=== PATIENT | male | born 1930 | race Caucasian/White ===

== ENCOUNTER 2017-02-25 07:09 | Inpatient (IN) ==
[2017-02-25] MEDS ORDERED: LIDOCAINE 1%/EPI INJ 20 ML VIAL ONE (07:51)
[2017-02-25] MEDS ORDERED: DIPH/TET/ACEL PERT BOOSTER VACCINE 0.5 ML VIAL IM ONE (07:54)
[2017-02-25 10:56] LABS: Basophils % 0.2 % (0.0-0.8); Eosinophils # 0.2 10*3/uL (0.0-0.87); Eosinophils % 1.3 % (0.00-10.9); Hematocrit 32.6 VOL% (42.0-52.0); Hemoglobin 10.5 GM/DL (14.0-18.0); Immature Granulocytes % 2.7 %; Immature Granulocytes Absolute 0.47 #; Lymphocytes % 5.5 % (21.2-54.2); Mean Corpuscular HGB Conc 32.2 GM/DL (32-36); Mean Corpuscular Hemoglobin 34 PG (27-34); Mean Corpuscular Volume 106.2 FL (87-102); Mean Platelet Volume 11.2 FL (9.6-12.0); Monocytes # 1.2 10*3/uL (0.11-0.8); Monocytes % 6.6 % (1.7-12.7); NRBC # 0.02 10*3/uL; Neutrophils # 14.8 10*3/uL (1.4-7.4); Neutrophils % 83.7 % (38.7-73.9); Platelet Count 127 T/CUMM (130-400); Red Blood Count 3.07 MC/CUMM (3.8-5.5); Red Cell Distribution Width 17.5 % (9.3-17.3); White Blood Count 17.6 T/CUMM (4-12)
[2017-02-25 11:32] LABS: Albumin 3.2 G/DL (3.4-5.0); Calcium 8.5 MG/DL (8.5-10.1); Osmolality,Calculated 308.6 MOS/KG (273-304); Potassium 3.7 MMOL/L (3.5-5.1); Total Protein 6.3 G/DL (6.4-8.3)
[2017-02-25 11:33] LABS: Troponin I Only 0.05 NG/ML (0.00-0.045)
[2017-02-25] MEDS ORDERED: PIPERACILLIN/TAZOBACTAM 3,375 MG in SODIUM CHLORIDE 0.9% 100 ML IV STA (11:48)
[2017-02-25] MEDS ORDERED: SODIUM CHLORIDE 0.9% 500 ML IV STA (11:52)
[2017-02-25] MEDS ORDERED: PIPERACILLIN/TAZOBACTAM 3,375 MG VIAL IV ONE (12:14)
[2017-02-25] MEDS ORDERED: DIPHTHERIA/TETANUS ADULT VACCINE 0.5 ML VIAL IM ONE (12:14)
[2017-02-25] MEDS ORDERED: SODIUM CHLORIDE 0.9% 100 ML IV ONE (12:15)
[2017-02-25] MEDS ORDERED: ONDANSETRON 4 MG/2 ML VIAL IV PRN (13:35)
[2017-02-25] MEDS ORDERED: ACETAMINOPHEN 325 MG TABLET PO PRN (14:00)
[2017-02-25] MEDS ORDERED: SODIUM CHLORIDE 0.9% 1,000 ML IV SCH (14:00)
[2017-02-25 16:59] LABS: Apearance,Urine Slightly Hazy (Clear); Bilirubin,Urine Negative (Negative); Blood, Urine Large mg/dL (Negative); Glucose,Urine (UA) Negative (Negative); Hyaline Casts,Urine 2 /LPF (0-3); Ketones,Urine Negative (Negative); Mucus,Urine Occasional /LPF (Occasional); Nitrite,Urine Negative (Negative); Protein,Urine Negative; RBC,Urine 368 /HPF (0-4); Urine Color Yellow (Yellow); Urine Urobilinogen < 2.0 EU/DL (0.2-1.0); WBC,Urine 1 /HPF (0-6)
[2017-02-25] MEDS: rOPINIRole 1 MG TABLET PO SCH (20:50)
[2017-02-26 05:57] LABS: Basophils % 0.1 % (0.0-0.8); Eosinophils # 0.1 10*3/uL (0.0-0.87); Eosinophils % 0.9 % (0.00-10.9); Hemoglobin 9.1 GM/DL (14.0-18.0); Immature Granulocytes % 1.7 %; Lymphocytes % 8.5 % (21.2-54.2); Mean Corpuscular HGB Conc 32.5 GM/DL (32-36); Mean Corpuscular Hemoglobin 35 PG (27-34); Mean Corpuscular Volume 107.3 FL (87-102); Mean Platelet Volume 11.7 FL (9.6-12.0); Monocytes % 8.4 % (1.7-12.7); Neutrophils # 9.3 10*3/uL (1.4-7.4); Neutrophils % 80.4 % (38.7-73.9); Red Blood Count 2.61 MC/CUMM (3.8-5.5); Red Cell Distribution Width 17.9 % (9.3-17.3); White Blood Count 11.6 T/CUMM (4-12)
[2017-02-26 06:00] LABS: Platelet Count 102 T/CUMM (130-400)
[2017-02-26 06:35] LABS: Giant Platelets Few; Hypochromasia 1+; Ovalocytes Slight; Platelet Estimate Decreased
[2017-02-26 06:43] LABS: Albumin 2.8 G/DL (3.4-5.0); Bilirubin,Total 0.9 MG/DL (0.2-1.0); Calcium 8.1 MG/DL (8.5-10.1); Osmolality,Calculated 314.9 MOS/KG (273-304); Potassium 3.7 MMOL/L (3.5-5.1); Total Protein 5.2 G/DL (6.4-8.3)
[2017-02-26] MEDS ORDERED: FUROSEMIDE 40 MG/4 ML VIAL IV ONE (08:41)
[2017-02-26] MEDS: PANTOPRAZOLE 40 MG TABLET PO SCH (09:26)
[2017-02-26] MEDS: FUROSEMIDE 40 MG/4 ML VIAL IV SCH (12:30)
[2017-02-26] MEDS ORDERED: ALUMINUM/MAGNES/SIMETH MAX STR 30 ML UDCUP PO PRN (13:04)
[2017-02-26] MEDS ORDERED: ZALEPLON 5 MG CAPSULE PO PRN (13:04)
[2017-02-26] MEDS ORDERED: MAGNESIUM HYDROXIDE SUSP 30 ML UDCUP PO PRN (13:04)
[2017-02-26] MEDS: DEXTROSE 5% 1,000 ML IV SCH (15:30)
[2017-02-26] MEDS ORDERED: ROPINIROLE HCL 5 MG PO SCH (21:00)
[2017-02-26] MEDS: rOPINIRole 1 MG TABLET PO SCH (21:57)
[2017-02-26] MEDS: FERROUS SULFATE 325 MG TABLET PO SCH (21:58)
[2017-02-26] MEDS: ALFUZOSIN 10 MG TABLET PO SCH (21:58)
[2017-02-26] MEDS: clonazePAM 0.5 MG TABLET PO SCH (21:58)
[2017-02-26] MEDS: FAMOTIDINE 20 MG TABLET PO SCH (21:59)
[2017-02-27 07:37] LABS: Eosinophils # 0.2 10*3/uL (0.0-0.87); Immature Granulocytes Absolute 0.07 #; Lymphocytes # 0.8 10*3/uL (1.4-4.0); Mean Corpuscular Hemoglobin 35 PG (27-34); Monocytes # 0.6 10*3/uL (0.11-0.8); White Blood Count 6.5 T/CUMM (4-12)
[2017-02-27 08:02] LABS: Calcium 7.5 MG/DL (8.5-10.1); Magnesium 1.9 MG/DL (1.8-2.4); Osmolality,Calculated 304.4 MOS/KG (273-304); Potassium 3.2 MMOL/L (3.5-5.1)
[2017-02-27 08:18] LABS: Hypochromasia 1+; Macrocytosis 1+; Polychromasia Slight; Target Cells Slight
[2017-02-27 08:42] LABS: Eosinophils % 2.8 % (0.00-10.9); Hematocrit 21.3 VOL% (42.0-52.0); Lymphocytes % 11.4 % (21.2-54.2); Mean Corpuscular HGB Conc 32.9 GM/DL (32-36); Mean Corpuscular Volume 105.4 FL (87-102); Mean Platelet Volume 11.2 FL (9.6-12.0); Monocytes % 9.5 % (1.7-12.7); Neutrophils # 5.1 10*3/uL (1.4-7.4); Neutrophils % 75.3 % (38.7-73.9); Platelet Count 77 T/CUMM (130-400); Red Blood Count 2.02 MC/CUMM (3.8-5.5); Red Cell Distribution Width 17.5 % (9.3-17.3)
[2017-02-27] MEDS: clonazePAM 0.5 MG TABLET PO SCH ×2 (08:51→21:31)
[2017-02-27] MEDS: FERROUS SULFATE 325 MG TABLET PO SCH ×2 (08:51→21:31)
[2017-02-27] MEDS: PANTOPRAZOLE 40 MG TABLET PO SCH (08:51)
[2017-02-27] MEDS: LOSARTAN 50 MG TABLET PO SCH (08:51)
[2017-02-27] MEDS: NEBIVOLOL 5 MG TABLET PO SCH (08:51)
[2017-02-27] MEDS: FUROSEMIDE 40 MG/4 ML VIAL IV SCH (08:52)
[2017-02-27] MEDS ORDERED: CLOPIDOGREL 75 MG TABLET PO SCH (09:00)
[2017-02-27] MEDS ORDERED: CELECOXIB 100 MG CAPSULE PO SCH (09:00)
[2017-02-27] MEDS ORDERED: SODIUM CHLORIDE 0.9% 1,000 ML IV PRN (11:21)
[2017-02-27] MEDS ORDERED: POTASSIUM CHLORIDE 20 MEQ TABLET PO ONE (11:25)
[2017-02-27] MEDS ORDERED: ZIPRASIDONE 20 MG/1 ML VIAL IM ONE (17:31)
[2017-02-27] MEDS: POTASSIUM CHLORIDE 20 MEQ TABLET PO SCH (21:31)
[2017-02-27] MEDS: FAMOTIDINE 20 MG TABLET PO SCH (21:31)
[2017-02-27] MEDS: ALFUZOSIN 10 MG TABLET PO SCH (21:31)
[2017-02-27] MEDS: rOPINIRole 1 MG TABLET PO SCH ×2 (21:31→21:46)
[2017-02-27 23:33] LABS: Troponin I Only 0.056 NG/ML (0.00-0.045)
[2017-02-27] MEDS: DEXTROSE 5% 1,000 ML IV SCH (23:40)
[2017-02-28 04:41] LABS: Eosinophils # 0.3 10*3/uL (0.0-0.87); Eosinophils % 4.3 % (0.00-10.9); Hemoglobin 8.8 GM/DL (14.0-18.0); Immature Granulocytes Absolute 0.07 #; Lymphocytes # 0.7 10*3/uL (1.4-4.0); Lymphocytes % 10.2 % (21.2-54.2); Mean Corpuscular HGB Conc 32.6 GM/DL (32-36); Mean Corpuscular Hemoglobin 33 PG (27-34); Mean Corpuscular Volume 101.5 FL (87-102); Mean Platelet Volume 11.6 FL (9.6-12.0); Monocytes # 0.5 10*3/uL (0.11-0.8); Monocytes % 7.7 % (1.7-12.7); Neutrophils # 5.4 10*3/uL (1.4-7.4); Neutrophils % 76.8 % (38.7-73.9); Platelet Count 78 T/CUMM (130-400); Red Blood Count 2.66 MC/CUMM (3.8-5.5); Red Cell Distribution Width 19.6 % (9.3-17.3)
[2017-02-28 05:05] LABS: Calcium 7.5 MG/DL (8.5-10.1); Magnesium 2.1 MG/DL (1.8-2.4); Osmolality,Calculated 305.3 MOS/KG (273-304); Potassium 3.7 MMOL/L (3.5-5.1)
[2017-02-28 05:33] LABS: Band Neutrophils 2 % (0-10); Eosinophils 4 % (0-10); Lymphocytes 10 % (20-55); Segmented Neutrophils 83 % (50-85); Total Cells Counted 100
[2017-02-28 05:34] LABS: Anisocytosis 1+; Hypochromasia 1+; Platelet Estimate Decreased
[2017-02-28] MEDS: DEXTROSE 5% 1,000 ML IV SCH (06:05)
[2017-02-28] MEDS: FERROUS SULFATE 325 MG TABLET PO SCH ×2 (08:52→21:25)
[2017-02-28] MEDS: PANTOPRAZOLE 40 MG TABLET PO SCH (08:52)
[2017-02-28] MEDS: LOSARTAN 50 MG TABLET PO SCH (08:52)
[2017-02-28] MEDS: clonazePAM 0.5 MG TABLET PO SCH ×2 (08:52→21:29)
[2017-02-28] MEDS: NEBIVOLOL 5 MG TABLET PO SCH (08:52)
[2017-02-28] MEDS: FUROSEMIDE 40 MG/4 ML VIAL IV SCH (08:53)
[2017-02-28] MEDS: POTASSIUM CHLORIDE 20 MEQ TABLET PO SCH ×2 (08:53→21:25)
[2017-02-28] MEDS: ALFUZOSIN 10 MG TABLET PO SCH (21:25)
[2017-02-28] MEDS: FAMOTIDINE 20 MG TABLET PO SCH (21:25)
[2017-02-28] MEDS: rOPINIRole 1 MG TABLET PO SCH (21:25)
[2017-03-01] MEDS: DEXTROSE 5% 1,000 ML IV SCH ×2 (03:46→21:33)
[2017-03-01] MEDS: FUROSEMIDE 40 MG/4 ML VIAL IV SCH (09:46)
[2017-03-01] MEDS: ALBUTEROL/IPRATROPIUM 3 ML NEB RESP TX SCH ×3 (11:47→20:06)
[2017-03-01] MEDS: clonazePAM 0.5 MG TABLET PO SCH ×2 (12:12→21:31)
[2017-03-01] MEDS: FERROUS SULFATE 325 MG TABLET PO SCH ×2 (12:12→21:31)
[2017-03-01] MEDS: NEBIVOLOL 5 MG TABLET PO SCH (12:13)
[2017-03-01] MEDS: POTASSIUM CHLORIDE 20 MEQ TABLET PO SCH ×2 (12:13→21:30)
[2017-03-01] MEDS: PANTOPRAZOLE 40 MG TABLET PO SCH (12:13)
[2017-03-01] MEDS: LOSARTAN 50 MG TABLET PO SCH (12:13)
[2017-03-01] MEDS: cefTRIAXone 1,000 MG in SYRINGE 1 EACH IV SCH (13:30)
[2017-03-01] MEDS: ALFUZOSIN 10 MG TABLET PO SCH (21:30)
[2017-03-01] MEDS: FAMOTIDINE 20 MG TABLET PO SCH (21:30)
[2017-03-01] MEDS: rOPINIRole 1 MG TABLET PO SCH (21:30)
[2017-03-02 06:14] LABS: Eosinophils # 0.2 10*3/uL (0.0-0.87); Eosinophils % 3.1 % (0.00-10.9); Hematocrit 25.1 VOL% (42.0-52.0); Hemoglobin 8.2 GM/DL (14.0-18.0); Immature Granulocytes % 0.9 %; Immature Granulocytes Absolute 0.06 #; Lymphocytes # 0.8 10*3/uL (1.4-4.0); Lymphocytes % 11.6 % (21.2-54.2); Mean Corpuscular HGB Conc 32.7 GM/DL (32-36); Mean Corpuscular Hemoglobin 34 PG (27-34); Mean Corpuscular Volume 104.6 FL (87-102); Mean Platelet Volume 10.9 FL (9.6-12.0); Monocytes # 0.7 10*3/uL (0.11-0.8); Monocytes % 10.1 % (1.7-12.7); Neutrophils % 74.3 % (38.7-73.9); Platelet Count 79 T/CUMM (130-400); Red Cell Distribution Width 18.2 % (9.3-17.3); White Blood Count 6.7 T/CUMM (4-12)
[2017-03-02 06:39] LABS: Calcium 7.4 MG/DL (8.5-10.1)
[2017-03-02 06:40] LABS: Hypochromasia 1+; Ovalocytes Slight; Platelet Estimate Decreased; Potassium 4.4 MMOL/L (3.5-5.1)
[2017-03-02 06:41] LABS: Giant Platelets Few
[2017-03-02] MEDS: ALBUTEROL/IPRATROPIUM 3 ML NEB RESP TX SCH ×2 (07:45→11:29)
[2017-03-02] MEDS: PANTOPRAZOLE 40 MG TABLET PO SCH (10:03)
[2017-03-02] MEDS: POTASSIUM CHLORIDE 20 MEQ TABLET PO SCH (10:03)
[2017-03-02] MEDS: NEBIVOLOL 5 MG TABLET PO SCH (10:03)
[2017-03-02] MEDS: FERROUS SULFATE 325 MG TABLET PO SCH (10:03)
[2017-03-02] MEDS: FUROSEMIDE 40 MG/4 ML VIAL IV SCH (10:04)
[2017-03-02] MEDS: clonazePAM 0.5 MG TABLET PO SCH (10:06)
[2017-03-02] MEDS: cefTRIAXone 1,000 MG in SYRINGE 1 EACH IV SCH (12:47)
[2017-03-02 12:48] VITALS: BP 116/58
== END 2017-03-02 13:45 | disposition home or self-care (01) | DRG 292 ==
LOC: EDBD → EDUNIT# → N.ED 07:09 → N.EDINP 12:11 → SUATTDRO 12:11 → N.EDINP 13:36 → N.5E 14:08
PROVIDERS: ADMIT Internal Medicine; ATTEND Internal Medicine